=== PATIENT | female | born 1965 | race Caucasian/White ===

== ENCOUNTER 2017-01-28 08:57 | Day surgery (SDC) | payer BC ==
[~2017-01-28 08:57] MED LIST: Lactated Ringers 1,000 ML IV SCH
[2017-01-28] MEDS ORDERED: fentaNYL 100 MCG/2 ML SDV ONE (09:39)
[2017-01-28] MEDS ORDERED: Propofol 200 MG/20 ML SDV ONE (09:39)
[2017-01-28] MEDS: Morphine 2 MG/ML Syringe IVPUSH PRN ×2 (12:04→12:49)
[2017-01-28] MEDS: Ondansetron 4 MG/2 ML SDV IVPUSH PRN ×2 (13:26→16:44)
[2017-01-28] MEDS ORDERED: Promethazine Topical Gel 0.5 ML Syringe TOP PRN (14:32)
[2017-01-28] MEDS ORDERED: Midazolam 1 MG/ML 2 ML SDV IVPUSH PRN (14:32)
[2017-01-28 15:44] VITALS: BP 112/59
--- NOTE | 2017-01-29 08:57 | OR ---
PREOPERATIVE DIAGNOSES: 1. Family history of polyps. 2. Problematic hemorrhoids. POSTOPERATIVE DIAGNOSES: 1. Normal colonoscopic exam. 2. Internal and external hemorrhoids with bleeding. PROCEDURES PROPOSED: 1. Total flexible colonoscopy. 2. Anoscopy with possible hemorrhoid banding. PROCEDURE DONE: 1. Total flexible colonoscopy. 2. Anoscopy with suction hemorrhoid banding x2. INDICATION: This is a 51-year-old female, who has a family history of polyps. She is [id number]. She has never had a colonoscopy. She also has been having problems with hemorrhoids and it is felt that she should be evaluated for that with possible banding at the same time. TECHNIQUE: The patient was brought to the endoscopy suite, placed in left lateral decubitus position. She was sedated with propofol per [employer]. The flexible video colonoscope was then passed transanally and under visualization advanced to the cecum. Examination revealed a normal ascending, transverse, descending, sigmoid, and rectal colon. There was no evidence of any diverticulosis, polyps, colitis or any other abnormalities. The scope was then withdrawn. She tolerated the procedure well. Attention was then drawn to the anal area as the lighted anoscope was then used to evaluate the three quadrants; right anterior, right posterior, and left lateral quadrants. She was noted to have internal hemorrhoids in the right anterior and right posterior quadrants. The one in the right anterior quadrant appeared to be ulcerated and possibly the source of bleeding. I felt that we should proceed with suction hemorrhoid banding which was performed in the right anterior and right posterior quadrants with good application of the rubber band. She tolerated this part of the procedure well. IMPRESSION: 1. Normal colonoscopic exam. 2. Family history of polyps. 3. Internal hemorrhoids banded x2. PLAN: The patient was recommended to have colonoscopies every 5 years hereafter due to her family history of polyps. I also recommend that she return to the clinic in 1 month for another anoscopy and revaluation of the internal hemorrhoids to see if there is any further banding that needs to be done. SCM: 01/28/2017 11:44:19 MODL: 01/28/2017 12:30:41 /[id number]
== END 2017-01-28 17:22 | disposition home or self-care (01) ==
LOC: VM.SDS 08:57
PROVIDERS: ATTEND Surgery
DX: K64.4 Residual hemorrhoidal skin tags (principal); K64.8 Other hemorrhoids; F41.9 Anxiety disorder, unspecified; Z98.890 Other specified postprocedural states; Z83.71 Family history of colonic polyps; Z79.899 Other long term (current) drug therapy; Z88.8 Allergy status to other drugs, medicaments and biological substances
CPT/HCPCS: 45378; 46221; A9270; J2250; J2270; J2405; J2704; J3010; J7120